=== PATIENT | female | born 1935 | race Caucasian/White ===

== ENCOUNTER 2018-08-16 15:03 | Inpatient (IN) | payer OTHER ==
--- OUTSIDE RECORDS SUMMARY | 2018-08-16 15:05 | XMS REPORT ---
:1935 [facility] Address [address] [place] [address] Care Team Providers Name Role Phone Unavailable Unavailable Unavailable Problems This patient has no known problems. Allergies, Adverse Reactions, Alerts This patient has no known allergies or adverse reactions. Medications This patient has no known medications.
[2018-08-16 17:37] LABS: Absolute Lymphocytes (CBC) 1.1 K/uL (0.7-4.9); Absolute Monocytes 0.8 K/uL (0.1-1.3); Absolute Neutrophil 9.9 K/uL (1.8-8.0); Basophils % 0.3 % (0-1.3); Eosinophils % 0.2 % (0-4.4); Hematocrit 40.3 % (36.0-45.0); MPV 7.7 fL (7.6-11.3); Monocytes % 6.9 % (3.3-12.3); RBC Red Blood Cell Count 4.45 M/uL (3.86-4.86)
[2018-08-16 17:47] LABS: ALT/SGPT 24 U/L (12-78); AST/SGOT 31 U/L (15-37); Albumin 3.6 g/dL (3.4-5.0); Alkaline Phosphatase 91 U/L (45-117); BUN Blood Urea Nitrogen 8 mg/dL (7-18); Bicarbonate 33 mmol/L (21-32); Bilirubin Direct 0.2 mg/dL (0-0.2); Bilirubin Total 0.6 mg/dL (0.2-1.0); Glucose Level 110 mg/dL (74-106); Lipase 159 U/L (73-393); Potassium 4.1 mmol/L (3.5-5.1); Protein, Total 6.7 g/dL (6.4-8.2)
[2018-08-16 17:52] LABS: Sodium Level 113 mmol/L (136-145)
--- NOTE | 2018-08-16 18:27 | RAD REPORT ---
EXAM DESCRIPTION: CT - Abdomen Pelvis Wo Contrast - 08/16/2018 6:10 pm CLINICAL HISTORY: Abdominal pain. Abd pain;Constipation COMPARISON: No comparisons TECHNIQUE: CT imaging of the abdomen and pelvis was performed without contrast. Solid organ and vasc ular assessment is limited due to lack of IV contrast. All CT scans are performed using dose optimization technique as appropriate and may include automated exposure control or mA/KV adjustment according to patient size. FINDINGS: The lower lung nelson are clear. The liver, spleen, pancreas, adrenal glands and left kidney are within normal limits for a limited no n-contrast examination.The right kidney is not visualized. No bowel obstruction, free air, free fluid or abscess. Moderate stool is retained in the colon. Promi nent aortoiliac atherosclerosis. Mild inflammatory changes are seen in the inferior rectum with a rec tocele suspected likely related to pelvic floor laxity. Irregular soft tissue mass is seen along the left aspect of the bladder measuring 3.7 x 2.6 cm[address]Modera [address] lumbar degenerative changes. IMPRESSION: Abnormal soft tissue mass along the left aspect of the bladder (3.7 x 2.6 cm) likely rep resenting a bladder malignancy. Recommend direct visualization with cystoscopy. Inferior pelvic floor laxity is suspected evidence of an rectocele. Suggest direct physical exam asse ssment. Aortoiliac atherosclerotic disease. Nonvisualized right kidney. A limited non-contrast examination was performed as detailed.
[2018-08-16] MEDS ORDERED: NA CHLORIDE 0.9% 1,000 ML ONE (18:29)
--- NOTE | 2018-08-16 19:21 | EDPHYS ---
Physician Documentation [facility] Name: Deandra Sorensen Age: 83 yrs Sex: Female : 1935 Arrival Date: 08/16/2018 Time: 15:04 Bed 19 Private MD: Stephon Sahu L ED Physician Shaan Singh HPI: 08/16 16:30 This 83 yrs old Female presents to ER via Wheelchair with complaints of pm1 abdominal pain and constipation. 16:30 The patient presents with abdominal pain that is diffuse. Onset: The symptoms/episode pm1 began/occurred 4 day(s) ago. The symptoms do not radiate. Associated signs and symptoms: Pertinent positives: constipation for 4 days, Pertinent negatives: chest pain, dysuria, fever, shortness of breath. The symptoms are described as achy. Modifying factors: The symptoms are alleviated by nothing, the symptoms are aggravated by constipation. The patient has experienced similar episodes in the past, multiple times, and the symptoms today are exactly the same, Constipation and hyponatremia admission in May 2018. Patient with constipation onset 7 days ago. Taking laxatives and had some diarrhea about four days ago but the constipation returned. 4 days of abdominal pain. No fevers, nausea or vomiting. Historical: - Allergies: 15:18 PENICILLINS; hb - PMHx: 15:18 COPD; hb - Immunization history:: Adult Immunizations up to date. - Social history:: Smoking status: Patient/guardian denies using tobacco. - Ebola Screening: : No symptoms or risks identified at this time. ROS: 16:30 Constitutional: Negative for fever, chills, and weight loss, Eyes: Negative for injury, pm1 pain, redness, and discharge, ENT: Negative for injury, pain, and discharge, Neck: Negative for injury, pain, and swelling, Cardiovascular: Negative for chest pain, palpitations, and edema, Respiratory: Negative for shortness of breath, cough, wheezing, and pleuritic chest pain. 16:30 Back: Negative for injury and pain, : Negative for injury, bleeding, discharge, and swelling, MS/Extremity: Negative for injury and deformity, Skin: Negative for injury, rash, and discoloration, Neuro: Negative for headache, weakness, numbness, tingling, and seizure. 16:30 Abdomen/GI: Positive for abdominal pain, constipation, Negative for nausea, vomiting, and diarrhea. Exam: 16:30 Constitutional: This is a well developed, well nourished patient who is awake, alert, pm1 and in no acute distress. Head/Face: Normocephalic, atraumatic. Eyes: Pupils equal round and reactive to light, extra-ocular motions intact. Lids and lashes normal. Conjunctiva and sclera are non-icteric and not injected. Cornea within normal limits. Periorbital areas with no swelling, redness, or edema. ENT: Nares patent. No nasal discharge, no septal abnormalities noted. Tympanic membranes are normal and external auditory canals are clear. Oropharynx with no redness, swelling, or masses, exudates, or evidence of obstruction, uvula midline. Mucous membranes moist. Neck: Trachea midline, no thyromegaly or masses palpated, and no cervical lymphadenopathy. Supple, full range of motion without nuchal rigidity, or vertebral point tenderness. No Meningismus. Chest/axilla: Normal chest wall appearance and motion. Nontender with no deformity. No lesions are appreciated. Cardiovascular: Regular rate and rhythm with a normal S1 and S2. No gallops, murmurs, or rubs. Normal PMI, no JVD. No pulse deficits. Respiratory: Lungs have equal breath sounds bilaterally, clear to auscultation and percussion. No rales, rhonchi or wheezes noted. No increased work of breathing, no retractions or nasal flaring. Abdomen/GI: Soft, non-tender, with normal bowel sounds. No distension or tympany. No guarding or rebound. No evidence of tenderness throughout. Back: No spinal tenderness. No costovertebral tenderness. Full range of motion. Skin: Warm, dry with normal turgor. Normal color with no rashes, no lesions, and no evidence of cellulitis. MS/ Extremity: Pulses equal, no cyanosis. Neurovascular intact. Full, normal range of motion. 16:30 Neuro: Orientation: is normal, Motor: is normal, moves all fours. 17:09 Abdomen/GI: Rectal prolapse self resolved. Maria Luisa newton, present at bedside for pm1 evaluation . Vital Signs: 15:16 BP 160 / 86; Pulse 104; Resp 20; Temp 97.8; Pulse Ox 91% on R/A; Pain 8/10; hb 16:30 BP 164 / 98; Pulse 97; Resp 18; Pulse Ox 100% on R/A; aj1 17:30 BP 175 / 84; Pulse 96; Resp 18; Pulse Ox 100% on R/A; aj1 18:26 BP 183 / 95; Pulse 99; Resp 18; Pulse Ox 100% on 2 lpm NC; aj1 19:00 BP 170 / 84; Pulse 89; Resp 20; Pulse Ox 100% on 2 lpm NC; jb4 20:00 BP 167 / 89; Pulse 94; Resp 20; Pulse Ox 99% on 2 lpm NC; jb4 21:00 BP 186 / 96; Pulse 95; Resp 20; Pulse Ox 98% on 2 lpm NC; jb4 21:46 BP 164 / 70; Pulse 96; Resp 20; Pulse Ox 97% on 2 lpm NC; jb4 MDM: 15:20 Patient medically screened. pm1 19:19 Data reviewed: vital signs. Data interpreted: Pulse oximetry: on room air is 100 %. pm1 Interpretation: normal. Counseling: I had a detailed discussion with the patient and/or guardian regarding: the historical points, exam findings, and any diagnostic results supporting the discharge/admit diagnosis, lab results, radiology results, the need for further work-up and treatment in the hospital. 19:54 Physician consultation: Wil Patiño MD was called at 19:54, was contacted at 19:54, pm1 regarding admission, patient's condition, and will see patient. 08/16 15:30 Order name: Basic Metabolic Panel; Complete Time: 17:58 pm1 08/16 15:30 Order name: CBC with Diff; Complete Time: 17:44 pm1 08/16 15:30 Order name: Creatinine for Radiology; Complete Time: 17:44 pm1 08/16 15:30 Order name: Hepatic Function; Complete Time: 17:58 pm1 08/16 15:30 Order name: Lipase; Complete Time: 17:58 pm1 08/16 20:59 Order name: Urine Microscopic Only; Complete Time: 22:36 pm1 08/16 21:10 Order name: Urine Dipstick--Ancillary (enter results); Complete Time: 21:21 fc 08/16 21:44 Order name: CBC with Automated Diff EDMS 08/16 21:44 Order name: CBC with Automated Diff EDMS 08/16 21:44 Order name: Comprehensive Metabolic Panel [facility] 08/16 21:44 Order name: Comprehensive Metabolic Panel [facility] 08/16 21:44 Order name: UR CREAT EDWI 08/16 21:44 Order name: UR CREAT EDWI 08/16 21:44 Order name: UR SODIUM EDWI 08/16 15:30 Order name: IV Saline Lock; Complete Time: 17:20 pm08/16 15:30 Order name: Labs collected and sent; Complete Time: 17:20 pm08/16 15:30 Order name: Urine Dipstick-Ancillary (obtain specimen); Complete Time: 21:12 pm08/16 18:05 Order name: Abdomen ; Complete Time: 18:33 EDWI 08/16 21:43 Order name: CONS Pharmacy Consult [facility] 08/16 21:44 Order name: Regular [facility] 08/16 21:44 Order name: UR SODIUM [facility] 08/16 21:44 Order name: Osmolality, Serum [facility] 08/16 21:44 Order name: Osmolality, Serum [facility] 08/16 21:44 Order name: Osmolality, Urine [facility] 08/16 21:44 Order name: Osmolality, Urine EDWI Administered Medications: 18:24 Drug: NS 0.9% 1000 ml Route: IV; Rate: 100 ml/hr; Site: left antecubital; aj1 22:23 Follow up: IV Status: Infusion continued upon admission jb4 Disposition: 18:51 Co-signature as Attending Physician, Shaan Singh MD. rn Disposition: 08/16/18 19:20 Hospitalization ordered by Wil Patiño for Inpatient Admission. Preliminary diagnosis is Hyponatremia. - Bed requested for Telemetry/MedSurg (Inpatient). - Status is Inpatient Admission. jb4 - Condition is Stable. - Problem is new. - Symptoms have improved. UTI on Admission? No Signatures: Dispatcher [employer] [facility] Ayla Naranjo RN RN aj1 Shaan Singh MD MD rn Garcia, Cindy, RN RN cg Marinas, Patrick, NP [employer] pm1 Cassie Zayas RN RN hb Bryson, James, RN RN jb4 Corrections: (The following items were deleted from the chart) 18:05 15:31 Abdomen Pelvis W Con+CT.RAD.BRZ ordered. [facility] 21:51 19:20 Hospitalization Ordered by Wil Patiño MD for Inpatient Admission. Preliminary cg diagnosis is Hyponatremia. Bed requested for Telemetry/MedSurg (Inpatient). Status is Inpatient Admission. Condition is Stable. Problem is new. Symptoms have improved. UTI on Admission? No. pm1 22:42 21:51 08/16/2018 19:20 Hospitalization Ordered by Wil Patiño MD for Inpatient jb4 Admission. Preliminary diagnosis is Hyponatremia. Bed requested for Telemetry/MedSurg (Inpatient). Status is Inpatient Admission. Condition is Stable. Problem is new. Symptoms have improved. UTI on Admission? No. cg
--- NOTE | 2018-08-16 19:21 | ER ---
Nurse's Notes [facility] Name: Deandra Sorensen Age: 83 yrs Sex: Female : 1935 Arrival Date: 08/16/2018 Time: 15:04 Bed 19 Private MD: Stephon Sahu L Diagnosis: Hyponatremia Presentation: 08/16 15:16 Presenting complaint: Constipation and lower abdominal pain x 4 days. Transition of hb care: patient was not received from another setting of care. Onset of symptoms was August 12, 2018. Risk Assessment: Do you want to hurt yourself or someone else? Patient reports no desire to harm self or others. Care prior to arrival: None. 15:16 Method Of Arrival: Wheelchair hb 15:16 Acuity: FATOU 3 hb Historical: - Allergies: 15:18 PENICILLINS; hb - PMHx: 15:18 COPD; hb - Immunization history:: Adult Immunizations up to date. - Social history:: Smoking status: Patient/guardian denies using tobacco. - Ebola Screening: : No symptoms or risks identified at this time. Screenin:30 Abuse screen: Denies threats or abuse. Denies injuries from another. Nutritional aj1 screening: No deficits noted. Tuberculosis screening: No symptoms or risk factors identified. Assessment: 16:30 General: Appears in no apparent distress. uncomfortable, Behavior is calm, cooperative, aj1 appropriate for age. Pain: Complains of pain in abdomen. Neuro: Level of Consciousness is awake, alert, obeys commands. Cardiovascular: Patient's skin is warm and dry. Respiratory: Airway is patent Respiratory effort is even, unlabored, Respiratory pattern is regular, symmetrical. GI: Abdomen is flat, non-distended, Bowel sounds present X 4 quads. Abd is soft and non tender X 4 quads. Reports constipation. : No signs and/or symptoms were reported regarding the genitourinary system. EENT: No signs and/or symptoms were reported regarding the EENT system. Derm: No signs and/or symptoms reported regarding the dermatologic system. Skin is pink, warm \T\ dry. normal. Musculoskeletal: No signs and/or symptoms reported regarding the musculoskeletal system. Circulation, motion, and sensation intact. 16:35 Reassessment: Patient assisted to the bathroom, tolerated fair. aj1 16:40 Reassessment: Patient assisted to bathroom via wheelchair, tolerated fair. aj1 16:50 Reassessment: Patient assisted to bedside commode, tolerated well. aj1 17:38 Reassessment: Patient appears in no apparent distress at this time. No changes from aj1 previously documented assessment. Patient and/or family updated on plan of care and expected duration. Pain level reassessed. Patient is alert, oriented x 3, equal unlabored respirations, skin warm/dry/pink. 18:26 Reassessment: Patient appears in no apparent distress at this time. No changes from aj1 previously documented assessment. Patient and/or family updated on plan of care and expected duration. Pain level reassessed. Patient is alert, oriented x 3, equal unlabored respirations, skin warm/dry/pink. 19:00 Reassessment: Patient appears in no apparent distress at this time. No changes from jb4 previously documented assessment. Patient and/or family updated on plan of care and expected duration. Pain level reassessed. Patient is alert, oriented x 3, equal unlabored respirations, skin warm/dry/pink. 20:00 Reassessment: Patient appears in no apparent distress at this time. No changes from jb4 previously documented assessment. Patient and/or family updated on plan of care and expected duration. Pain level reassessed. Patient is alert, oriented x 3, equal unlabored respirations, skin warm/dry/pink. 21:00 Reassessment: Patient appears in no apparent distress at this time. No changes from jb4 previously documented assessment. Patient and/or family updated on plan of care and expected duration. Pain level reassessed. Patient is alert, oriented x 3, equal unlabored respirations, skin warm/dry/pink. 21:58 Reassessment: Patient appears in no apparent distress at this time. No changes from jb4 previously documented assessment. Patient and/or family updated on plan of care and expected duration. Pain level reassessed. Patient is alert, oriented x 3, equal unlabored respirations, skin warm/dry/pink. 22:04 Reassessment: attempted to call report instructed to wait for call back. jb4 Vital Signs: 15:16 BP 160 / 86; Pulse 104; Resp 20; Temp 97.8; Pulse Ox 91% on R/A; Pain 8/10; hb 16:30 BP 164 / 98; Pulse 97; Resp 18; Pulse Ox 100% on R/A; aj1 17:30 BP 175 / 84; Pulse 96; Resp 18; Pulse Ox 100% on R/A; aj1 18:26 BP 183 / 95; Pulse 99; Resp 18; Pulse Ox 100% on 2 lpm NC; aj1 19:00 BP 170 / 84; Pulse 89; Resp 20; Pulse Ox 100% on 2 lpm NC; jb4 20:00 BP 167 / 89; Pulse 94; Resp 20; Pulse Ox 99% on 2 lpm NC; jb4 21:00 BP 186 / 96; Pulse 95; Resp 20; Pulse Ox 98% on 2 lpm NC; jb4 21:46 BP 164 / 70; Pulse 96; Resp 20; Pulse Ox 97% on 2 lpm NC; jb4 ED Course: 15:04 Patient arrived in ED. ag5 15:05 Stephon Sahu MD is Private Physician. ag5 15:16 Triage completed. hb 15:18 Arm band placed on. hb 15:20 Prem Clark NP is PHCP. pm1 15:20 Shaan Singh MD is Attending Physician. pm1 16:18 Ayla Naranjo RN is Primary Nurse. aj1 16:30 Patient has correct armband on for positive identification. Bed in low position. Call aj1 light in reach. Side rails up X 1. 16:30 No provider procedures requiring assistance completed. aj1 17:14 Initial lab(s) drawn, by me, sent to lab. Inserted saline lock: 22 gauge in left dh3 forearm, using aseptic technique. Blood collected. 17:15 Radiology exam delayed due to lab results not completed at this time. (BUN/Creatinine). vm2 17:31 Radiology exam delayed due to lab results not completed at this time. (BUN/Creatinine). vm2 17:[address] via wheelchair. vm2 18:08 CT completed. Patient tolerated procedure well. Patient moved back from CT. vm2 18:09 Abdomen In Process Unspecified. EDMS 19:19 Wil Patiño MD is Hospitalizing Provider. pm1 22:22 Patient admitted, IV remains in place. jb4 Administered Medications: 18:24 Drug: NS 0.9% 1000 ml Route: IV; Rate: 100 ml/hr; Site: left antecubital; aj1 22:23 Follow up: IV Status: Infusion continued upon admission jb4 Outcome: 19:20 Decision to Hospitalize by Provider. pm1 22:21 Admitted to Med/surg accompanied by tech, via stretcher, room 207, with oxygen, with jb4 chart, Report called to VIRI Garza 22:21 Condition: stable 22:21 Discharge instructions given to patient, family, Instructed on the need for admit, Demonstrated understanding of instructions. 22:42 Patient left the ED. jb4 Signatures: Dispatcher [employer] EDMS Ayla Naranjo RN RN aj1 Prem Clark, RIP TAILER RIP TAILER pm1 Cassie Zayas RN RN hb Bryson, James, RN RN jb4 Isadora Irving 2 Maria Luisa Casarez 3 Khloe Ballesteros 5 Corrections: (The following items were deleted from the chart) 17:38 17:37 Reassessment: Patient assisted to bathroom via wheelchair, tolerated fair aj1 aj1 22:03 19:00 Reassessment: Patient appears in no apparent distress at this time. Patient jb4 and/or family updated on plan of care and expected duration. Pain level reassessed. Patient is alert, oriented x 3, equal unlabored respirations, skin warm/dry/pink. jb4 22:03 20:00 Reassessment: Patient appears in no apparent distress at this time. Patient jb4 and/or family updated on plan of care and expected duration. Pain level reassessed. Patient is alert, oriented x 3, equal unlabored respirations, skin warm/dry/pink. jb4 22:03 21:00 Reassessment: Patient appears in no apparent distress at this time. Patient jb4 and/or family updated on plan of care and expected duration. Pain level reassessed. Patient is alert, oriented x 3, equal unlabored respirations, skin warm/dry/pink. jb4 22:03 21:58 Reassessment: Patient appears in no apparent distress at this time. Patient jb4 and/or family updated on plan of care and expected duration. Pain level reassessed. Patient is alert, oriented x 3, equal unlabored respirations, skin warm/dry/pink. jb4
[2018-08-16 21:20] LABS: Urine Blood 1+ (NEG); Urine Glucose NEGATIVE (NEG); Urine Protein 2+ (NEG); Urine Specific Gravity 1.015 (1.005-1.030); Urine pH 7.5 (5.0-7.0)
[2018-08-16] MEDS ORDERED: MORPHINE 2 MG/ML SYR IV PRN (21:40)
[2018-08-16 21:58] LABS: Urine Amorphous Sediment 1+ /HPF (NONE SEEN); Urine Bacteria <20 /HPF (<20); Urine Culture Reflex Order NOT NEEDED
[2018-08-16] MEDS: NA CHLORIDE 0.9% 1,000 ML IV SCH (22:00)
[2018-08-17] MEDS: ACETAMINOPHEN 500 MG TAB PO PRN ×2 (01:46→09:36)
[2018-08-17] MEDS: NA CHLORIDE 0.9% 1,000 ML IV SCH ×2 (05:11→07:00)
[2018-08-17 06:40] LABS: Absolute Lymphocytes (CBC) 1.3 K/uL (0.7-4.9); Absolute Monocytes 0.8 K/uL (0.1-1.3); Absolute Neutrophil 7.2 K/uL (1.8-8.0); Basophils % 0.2 % (0-1.3); Eosinophils % 0.8 % (0-4.4); Hematocrit 42.7 % (36.0-45.0); Lymphocytes % 13.8 % (15.3-44.8); MPV 7.5 fL (7.6-11.3); Monocytes % 8.6 % (3.3-12.3); RBC Red Blood Cell Count 4.69 M/uL (3.86-4.86)
[2018-08-17 06:43] LABS: ALT/SGPT 27 U/L (12-78); AST/SGOT 35 U/L (15-37); Albumin 3.6 g/dL (3.4-5.0); Alkaline Phosphatase 89 U/L (45-117); BUN Blood Urea Nitrogen 7 mg/dL (7-18); Bicarbonate 32 mmol/L (21-32); Bilirubin Total 0.5 mg/dL (0.2-1.0); Glucose Level 95 mg/dL (74-106); Potassium 3.6 mmol/L (3.5-5.1); Protein, Total 6.8 g/dL (6.4-8.2); Sodium Level 123 mmol/L (136-145)
[2018-08-17] MEDS ORDERED: NA CHLORIDE 0.9% 1,000 ML IV SCH (07:00)
[2018-08-17] MEDS: NIFEDIPINE XL 30 MG TABLET PO SCH (09:35)
[2018-08-17 11:37] LABS: BUN Blood Urea Nitrogen 10 mg/dL (7-18); Bicarbonate 32 mmol/L (21-32); Glucose Level 75 mg/dL (74-106); Potassium 3.3 mmol/L (3.5-5.1); Sodium Level 124 mmol/L (136-145)
[2018-08-17] MEDS: DOCUSATE NA 100 MG CAP PO SCH ×2 (12:44→21:12)
[2018-08-17] MEDS: LEVALBUTEROL 1.25 MG/3 ML NEB NEB PRN (16:15)
[2018-08-17] MEDS: IPRATROPIUM BROM 0.5MG/2.5ML NEB PRN (16:15)
[2018-08-17] MEDS ORDERED: LEVALBUTEROL 1.25 MG/3 ML NEB ONE (16:28)
[2018-08-17] MEDS ORDERED: IPRATROPIUM BROM 0.5MG/2.5ML ONE (16:28)
[2018-08-17 17:23] LABS: BUN Blood Urea Nitrogen 9 mg/dL (7-18); Bicarbonate 30 mmol/L (21-32); Glucose Level 109 mg/dL (74-106); Potassium 3.3 mmol/L (3.5-5.1); Sodium Level 125 mmol/L (136-145)
--- NOTE | 2018-08-17 17:48 | P.PN ---
Subjective Date of Service: 08/17/18 Patient seen and examined at bedside. No family at bedside. Chart reviewed and case discussed with nursing staff. States that she cannot go to the bathroom, bowel movement is painful. Has a rectocele, with streaks of bright red blood noted in the diaper. Review of Systems 10-point ROS is otherwise unremarkable Physical Examination - Vital Signs Temperature: 98.6 F Blood Pressure: 139/90 Pulse: 115 Respirations: 20 Pulse Ox (%): 95 - Physical Exam General: Alert, In no apparent distress, Mild distress, Moderate distress HEENT: Atraumatic, PERRLA, EOMI Neck: Supple, JVD not distended Respiratory: Clear to auscultation bilaterally, Normal air movement Cardiovascular: Regular rate/rhythm, Normal S1 S2 Gastrointestinal: Normal bowel sounds, No tenderness Musculoskeletal: No tenderness Integumentary: No rashes Neurological: Normal speech, Normal tone, Normal affect Lymphatics: No axilla or inguinal lymphadenopathy Rectal: Other (Rectocele noted) - Studies Laboratory Data (last 24 hrs) 08/16/18 17:14: Sodium 113 L*, Potassium 4.1, BUN 8, Creatinine 0.55, Glucose 110 H, Total Bilirubin 0.6, AST 31, ALT 24, Alkaline Phosphatase 91, Lipase 159 Assessment And Plan - Current Problems (Diagnosis) (1) Rectocele Current Visit: Yes Status: Acute (2) Constipation Current Visit: Yes Status: Acute (3) Hyponatremia Current Visit: Yes Status: Acute (4) Hypertension Current Visit: Yes Status: Acute - Plan This is a 83 yr old female with: Constipation (Acute) K59.003 Colace 100 b.i.d. Hyponatremia (Acute) E87.1 Continue IVF, continue to monitor sodium Rectocele (Acute) N81.6 She will need follow up with general surgery as an outpatient Hypertension Restart home medications DVT prophylaxis: Lovenox Diet: Heart healthy Disposition: pending symptomatic improvement and electrolyte improvement. Continue to monitor.
[2018-08-17] MEDS: TRAMADOL HCL 50 MG TAB PO PRN (18:52)
[2018-08-17] MEDS: clonazePAM 0.5 MG TAB PO SCH (21:12)
--- NOTE | 2018-08-17 21:47 | P.HP ---
Certification for Inpatient Patient admitted to: Inpatient With expected LOS: >2 Midnights Patient will require the following post-hospital care: None Practitioner: I am a practitioner with admitting privileges, knowledge of patient current condition, hospital course, and medical plan of care. Services: Services provided to patient in accordance with Admission requirements found in Title 42 Section 412.3 of the Code of Federal Regulations Patient History Date of Service: 08/16/18 Reason for admission: hyponatremia History of Present Illness: Patient is an 83yo who was admitted to the hospital with hyponatremia. Patient has a history of a rectocele and also appears to have a mass close to the bladder. Patient will need an evaluation by General surgery. This can probably be done as an outpatient. Patient's hyponatremia our needs to be corrected. She had a similar complaint plane a few months ago and this was felt to be related to Cymbalta. Patient be admitted to the hospital for further evaluation. Allergies Penicillins Allergy (Verified 08/16/18 22:54) unkown red dye Allergy (Verified 08/16/18 22:54) unknown Home Medications: Duloxetine HCl [Cymbalta] 30 mg PO DAILY 08/17/18 Lisinopril 20 mg PO DAILY 08/17/18 Nifedipine [Nifedipine ER] 30 mg PO DAILY 08/17/18 clonazePAM [Clonazepam] 1 tab PO BEDTIME 08/17/18 - Past Medical/Surgical History Has patient received pneumonia vaccine in the past: Yes Diabetic: No -: COPD -: NERVE Problems -: Depression -: Hysterectomy - Family History Father Medical History: Heart disease, Hypertension, Stroke Mother Medical History: Heart disease, Hypertension, Stroke - Social History Smoking Status: Current every day smoker Alcohol use: No CD- Drugs: No Caffeine use: Yes Place of Residence: Home Review of Systems 10-point ROS is otherwise unremarkable Physical Examination - Vital Signs Temperature: 97.4 F Blood Pressure: 133/79 Pulse: 96 Respirations: 20 Pulse Ox (%): 94 - Physical Exam General: Alert, Oriented x2, Cachectic, Disheveled HEENT: Atraumatic, Normocephalic Neck: Supple, 2+ carotid pulse no bruit, JVD not distended, No Thyromegaly Respiratory: Clear to auscultation bilaterally, Normal air movement Cardiovascular: Regular rate/rhythm, Normal S1 S2, No murmurs Gastrointestinal: Normal bowel sounds, Soft and benign, Non-distended Musculoskeletal: No clubbing, No swelling Integumentary: No rashes Neurological: Normal speech, Normal strength at 5/5 x4 extr, Normal tone, Sensation intact, Cranial nerves 3-12 intact Assessment & Plan - Problems (Diagnosis) (1) Hyponatremia Current Visit: Yes Status: Acute (2) Rectocele Current Visit: Yes Status: Acute - Plan Plan: 1. hydration with normal saline and correct his sodium gradually over 48 hr 2. monitor renal function closely 3. patient with rectocele and will need to be evaluated as an outpatient by General surgery 4. cystoscopy as an outpatient 5. GI and DVT prophylaxis - Advance Directives Does patient have a Living Will: Yes Does patient have a Durable POA for Healthcare: Yes - Code Status/Comfort Care Code Status Assessed: Yes Code Status: Full Code Critical Care: No Time Spent Managing PTS Care (In Minutes): 45
[2018-08-18 00:16] LABS: BUN Blood Urea Nitrogen 11 mg/dL (7-18); Bicarbonate 30 mmol/L (21-32); Glucose Level 96 mg/dL (74-106); Potassium 3.2 mmol/L (3.5-5.1); Sodium Level 128 mmol/L (136-145)
[2018-08-18] MEDS: NA CHLORIDE 0.9% 1,000 ML IV SCH ×3 (03:00→23:41)
[2018-08-18 06:16] LABS: BUN Blood Urea Nitrogen 9 mg/dL (7-18); Bicarbonate 34 mmol/L (21-32); Glucose Level 90 mg/dL (74-106); Potassium 3.3 mmol/L (3.5-5.1); Sodium Level 130 mmol/L (136-145)
[2018-08-18] MEDS: DOCUSATE NA 100 MG CAP PO SCH ×2 (08:23→20:00)
[2018-08-18] MEDS: NIFEDIPINE XL 30 MG TABLET PO SCH (08:24)
[2018-08-18] MEDS: ACETAMINOPHEN 500 MG TAB PO PRN (08:24)
[2018-08-18] MEDS ORDERED: LACTULOSE 20 GM/30 ML UCUP PO ONE (09:03)
[2018-08-18] MEDS ORDERED: POTASSIUM 25 MEQ EFFERV TAB PO ONE ×2 (09:06→21:00)
[2018-08-18 11:31] LABS: Potassium 5.1 mmol/L (3.5-5.1)
--- NOTE | 2018-08-18 13:16 | P.PN ---
Subjective Date of Service: 08/18/18 Chief Complaint: hyponatremia Patient seen and examined at bedside. No family at bedside. Chart reviewed and case discussed with nursing staff. States that she cannot go to the bathroom, bowel movement is painful. Has a rectocele, with streaks of bright red blood noted in the diaper. Complaining of abdominal pain, diffuse as she feels like she is going to have a bowel movement. 1 very small BM overnight. Review of Systems 10-point ROS is otherwise unremarkable Physical Examination - Vital Signs Temperature: 98.6 F Blood Pressure: 139/90 Pulse: 115 Respirations: 20 Pulse Ox (%): 95 - Physical Exam General: Alert, Mild distress HEENT: Atraumatic, PERRLA, EOMI Neck: Supple, JVD not distended Respiratory: Clear to auscultation bilaterally, Normal air movement Cardiovascular: Regular rate/rhythm, Normal S1 S2 Gastrointestinal: Normal bowel sounds, Tenderness (Diffuse) Musculoskeletal: No tenderness Integumentary: No rashes Neurological: Normal speech, Normal tone, Normal affect Lymphatics: No axilla or inguinal lymphadenopathy Assessment And Plan - Current Problems (Diagnosis) (1) Rectocele Current Visit: Yes Status: Acute (2) Constipation Current Visit: Yes Status: Acute (3) Hyponatremia Current Visit: Yes Status: Acute (4) Hypertension Current Visit: Yes Status: Acute - Plan This is a 83 yr old female with: Constipation (Acute) K59.003 Colace 100 b.i.d. Will consider adding lactulose if no bowel movement as patient is in mod distress Hyponatremia (Acute) E87.1 Continue IVF, continue to monitor sodium Appropriate Improvement in sodium Rectocele (Acute) N81.6 She will need follow up with general surgery as an outpatient Hypertension Restart home medications DVT prophylaxis: Lovenox Diet: Heart healthy Disposition: pending symptomatic improvement and electrolyte improvement. Continue to monitor. SW consult for dispo planning.
[2018-08-18] MEDS: IPRATROPIUM BROM 0.5MG/2.5ML NEB PRN ×2 (13:17→20:15)
[2018-08-18] MEDS: LEVALBUTEROL 1.25 MG/3 ML NEB NEB PRN ×2 (13:18→20:15)
[2018-08-18] MEDS: HYDROCODONE/APAP 5/325 MG TAB PO PRN ×2 (15:13→22:19)
[2018-08-18 17:27] LABS: Potassium 3.7 mmol/L (3.5-5.1)
[2018-08-18] MEDS: TRAMADOL HCL 50 MG TAB PO PRN (18:24)
[2018-08-18 18:53] LABS: Phosphorus 2.6 mg/dL (2.5-4.9)
[2018-08-18] MEDS: ENSURE ENLIVE 237 ML CAN PO SCH (20:00)
[2018-08-18] MEDS: clonazePAM 0.5 MG TAB PO SCH (20:01)
[2018-08-19 05:57] LABS: BUN Blood Urea Nitrogen 12 mg/dL (7-18); Bicarbonate 34 mmol/L (21-32); Glucose Level 87 mg/dL (74-106); Potassium 3.7 mmol/L (3.5-5.1); Sodium Level 137 mmol/L (136-145)
[2018-08-19] MEDS: ENSURE ENLIVE 237 ML CAN PO SCH ×2 (08:38→20:32)
[2018-08-19] MEDS: DOCUSATE NA 100 MG CAP PO SCH ×2 (08:38→20:31)
[2018-08-19] MEDS: NIFEDIPINE XL 30 MG TABLET PO SCH (08:38)
[2018-08-19] MEDS ORDERED: POTASSIUM 25 MEQ EFFERV TAB PO ONE (09:00)
[2018-08-19] MEDS ORDERED: BENZONATATE 100 MG CAP PO PRN (11:17)
[2018-08-19] MEDS: TRAMADOL HCL 50 MG TAB PO PRN ×2 (12:05→23:34)
[2018-08-19] MEDS: ALBUTEROL 2.5 MG/3 ML NEB SOL NEB SCH ×2 (13:03→20:09)
[2018-08-19] MEDS: IPRATROPIUM BROM 0.5MG/2.5ML NEB SCH ×2 (13:04→20:11)
--- NOTE | 2018-08-19 15:03 | RAD REPORT ---
EXAM DESCRIPTION: RAD - Chest Pa And Lat (2 Views) - 08/19/2018 2:56 pm CLINICAL HISTORY: COPD Chest pain. COMPARISON: Abdomen Pelvis Wo Contrast dated 08/16/2018 FINDINGS: Diffuse emphysema is present. The heart is mildly prominent in size. No displaced fracture s. IMPRESSION: Prominent COPD pattern.
--- NOTE | 2018-08-19 15:29 | P.PN ---
Subjective Date of Service: 08/19/18 Chief Complaint: hyponatremia Patient seen and examined at bedside. No family at bedside. Chart reviewed and case discussed with nursing staff. States that she cannot go to the bathroom, bowel movement is painful. Has a rectocele, with streaks of bright red blood noted in the diaper. Complaining of abdominal pain, diffuse as she feels like she is going to have a bowel movement. Also complaining of feeling short of breath, cough and congestion. Review of Systems 10-point ROS is otherwise unremarkable Physical Examination - Vital Signs Temperature: 97.7 F Blood Pressure: 140/95 Pulse: 103 Respirations: 20 Pulse Ox (%): 95 - Physical Exam General: Alert, Cachectic, Moderate distress, Other (Ill-appearing) HEENT: Atraumatic, PERRLA, EOMI Neck: Supple, JVD not distended Respiratory: Clear to auscultation bilaterally, Normal air movement Cardiovascular: Regular rate/rhythm, Normal S1 S2 Gastrointestinal: Normal bowel sounds, Tenderness (Diffuse) Musculoskeletal: No tenderness Integumentary: No rashes Neurological: Normal speech, Normal tone, Normal affect Lymphatics: No axilla or inguinal lymphadenopathy Rectal: Other (Rectocele) Assessment And Plan - Current Problems (Diagnosis) (1) Rectocele Current Visit: Yes Status: Acute (2) Constipation Current Visit: Yes Status: Acute (3) Hyponatremia Current Visit: Yes Status: Acute (4) Hypertension Current Visit: Yes Status: Acute (5) Dyspnea Current Visit: Yes Status: Acute (6) COPD exacerbation Current Visit: Yes Status: Acute (7) Bladder mass Current Visit: Yes Status: Acute (8) Current smoker Current Visit: Yes Status: Acute - Plan This is a 83 yr old female with: Constipation (Acute) K59.003 Colace 100 b.i.d. Will consider adding lactulose if no bowel movement as patient is in mod distress Likely secondary to the rectocele Dyspnea COPD exacerbation Current smoker Continue breathing treatments, scheduled Oxygen as needed Chest x-ray with COPD changes, no acute pneumonia/consolidation noted Counseled on smoking cessation Hyponatremia (Acute) E87.1 Resolved Bladder mass, soft tissue, located on left aspect of bladder Incidentally found on CT abdomen Soft tissue mass, Suspicious for bladder malignancy Patient will need outpatient urology/cystoscopy for further evaluation of the mass Rectocele (Acute) N81.6 She will need follow up with general surgery as an outpatient Hypertension Restart home medications. Will continue to adjust as needed DVT prophylaxis: Lovenox Diet: Heart healthy Disposition: pending symptomatic improvement. Continue to monitor. SW consult for dispo planning.
[2018-08-19] MEDS: ONDANSETRON 4 MG/2 ML VIAL IV PRN (16:32)
[2018-08-19] MEDS: NA CHLORIDE 0.9% 1,000 ML IV SCH (19:00)
--- NOTE | 2018-08-19 19:22 | RAD REPORT ---
EXAM DESCRIPTION: RAD - Shoulder Left 2 View - 08/19/2018 7:15 pm CLINICAL HISTORY: fall Fall, trauma, left shoulder pain COMPARISON: No comparisons FINDINGS: No acute fracture or dislocation is seen.
--- NOTE | 2018-08-19 19:23 | RAD REPORT ---
EXAM DESCRIPTION: RAD - Wrist Left 3 View - 08/19/2018 7:17 pm CLINICAL HISTORY: fall Pain COMPARISON: No comparisons FINDINGS: Soft tissue swelling is seen along the dorsum of the distal forearm. Radiocarpal arthriti c changes are present. No acute fracture or dislocation identified
--- NOTE | 2018-08-19 20:13 | RAD REPORT ---
EXAM DESCRIPTION: US - Extremity Venous Uni Ltd - 08/19/2018 8:03 pm CLINICAL HISTORY: fall Leg swelling and edema. COMPARISON: No comparisons FINDINGS: Left upper extremity venous system was interrogated with Doppler technique. Normal flow, c ompressibility and augmentation was noted. There is no DVT present. IMPRESSION: No evidence of left upper extremity deep venous thrombosis.
[2018-08-19] MEDS: clonazePAM 0.5 MG TAB PO SCH (20:31)
[2018-08-20] MEDS: ALBUTEROL 2.5 MG/3 ML NEB SOL NEB SCH ×3 (01:35→14:00)
[2018-08-20] MEDS: IPRATROPIUM BROM 0.5MG/2.5ML NEB SCH ×3 (01:35→14:00)
[2018-08-20] MEDS: NA CHLORIDE 0.9% 1,000 ML IV SCH ×3 (03:35→20:13)
[2018-08-20 05:59] LABS: BUN Blood Urea Nitrogen 12 mg/dL (7-18); Bicarbonate 35 mmol/L (21-32); Glucose Level 86 mg/dL (74-106); Potassium 3.7 mmol/L (3.5-5.1); Sodium Level 136 mmol/L (136-145)
[2018-08-20] MEDS: DULOXETINE 30 MG CAP PO SCH (08:34)
[2018-08-20] MEDS: DOCUSATE NA 100 MG CAP PO SCH ×2 (08:34→20:13)
[2018-08-20] MEDS: NIFEDIPINE XL 30 MG TABLET PO SCH (08:34)
[2018-08-20] MEDS: ENSURE ENLIVE 237 ML CAN PO SCH ×2 (08:35→20:17)
[2018-08-20] MEDS ORDERED: POTASSIUM 25 MEQ EFFERV TAB PO ONE (09:00)
--- NOTE | 2018-08-20 11:10 | P.PN ---
Subjective Date of Service: 08/20/18 Chief Complaint: hyponatremia Patient seen and examined at bedside. No family at bedside. Chart reviewed and case discussed with nursing staff. States that she cannot go to the bathroom, bowel movement is painful. Has a rectocele, with streaks of bright red blood noted in the diaper. Complaining of abdominal pain, diffuse as she feels like she is going to have a bowel movement. States this feels a little better. That has actually defecate , cannot defecate/feeling of incomplete defecation. Shortness of breath, cough and congestion has improved. Overnight, patient had a questionable fall. Per patient, she was leaning over to throw something in trash can and kind of fell forward. She hit her wrist, but states she did not hit her head. This morning not complaining of any pain Review of Systems 10-point ROS is otherwise unremarkable Physical Examination - Vital Signs Temperature: 98.6 F Blood Pressure: 157/73 Pulse: 101 Respirations: 18 Pulse Ox (%): 89 - Physical Exam General: Alert, Cachectic, Mild distress, Other (Elderly) HEENT: Atraumatic, PERRLA, EOMI Neck: Supple, JVD not distended Respiratory: Clear to auscultation bilaterally, Normal air movement Cardiovascular: Regular rate/rhythm, Normal S1 S2 Gastrointestinal: Normal bowel sounds, Tenderness (Mild/diffuse) Musculoskeletal: No tenderness Integumentary: No rashes Neurological: Normal speech, Normal tone, Normal affect External genitalia: Other (Rectocele noted) Assessment And Plan - Current Problems (Diagnosis) (1) Rectocele Current Visit: Yes Status: Acute (2) Constipation Current Visit: Yes Status: Acute (3) Hyponatremia Current Visit: Yes Status: Acute (4) Hypertension Current Visit: Yes Status: Acute (5) Dyspnea Current Visit: Yes Status: Acute (6) COPD exacerbation Current Visit: Yes Status: Acute (7) Bladder mass Current Visit: Yes Status: Acute (8) Current smoker Current Visit: Yes Status: Acute (9) Fall during current hospitalization Current Visit: Yes Status: Acute Qualifiers: Encounter type: initial encounter Qualified Code(s): W19.XXXA - Unspecified fall, initial encounter; Y92.239 - Unspecified place in hospital as the place of occurrence of the external cause - Plan This is a 83 yr old female with: Constipation (Acute) K59.003 Continue Colace 100 b.i.d. Likely secondary to the rectocele Increase hydration, fiber. Dyspnea COPD exacerbation Current smoker Continue breathing treatments, scheduled Oxygen as needed Chest x-ray with COPD changes, no acute pneumonia/consolidation noted Counseled on smoking cessation Hyponatremia (Acute) E87.1 Resolved Bladder mass, soft tissue, located on left aspect of bladder Incidentally found on CT abdomen Soft tissue mass, Suspicious for bladder malignancy Patient will need outpatient urology/cystoscopy for further evaluation of the mass Rectocele (Acute) N81.6 She will need follow up with general surgery as an outpatient Patient is in a lot of pain and if it continues We will have general surgery evaluate patient here. Hypertension Stable on home medications. Will continue to adjust as needed Status post fall in the hospital Did not hit her head, but patient was complaining of neck pain. CT scan of the head ordered, patient refused stating that she feels okay. X-ray of the wrist and shoulder without any acute abnormalities. Hematoma evaluated on the wrist, improved from yesterday. Ultrasound negative for any DVT at this time. Denies any complaints of pain this morning. Will continue to monitor mentation/ neurological status. DVT prophylaxis: Lovenox Diet: Heart healthy Disposition: pending symptomatic improvement. Continue to monitor. SW consult for dispo planning as patient lives by herself, and I do not think she will be a safe discharge home..
[2018-08-20] MEDS: TRAMADOL HCL 50 MG TAB PO PRN (12:18)
[2018-08-20] MEDS ORDERED: IPRATROPIUM BROM 0.5MG/2.5ML NEB PRN (14:59)
[2018-08-20] MEDS: clonazePAM 0.5 MG TAB PO SCH (20:13)
[2018-08-21] MEDS: TRAMADOL HCL 50 MG TAB PO PRN ×4 (00:09→21:05)
[2018-08-21] MEDS: ACETAMINOPHEN 500 MG TAB PO PRN ×4 (02:15→23:44)
[2018-08-21 06:22] LABS: Absolute Lymphocytes (CBC) 1.2 K/uL (0.7-4.9); Absolute Monocytes 0.8 K/uL (0.1-1.3); Absolute Neutrophil 5.4 K/uL (1.8-8.0); Basophils % 0.3 % (0-1.3); Eosinophils % 2.5 % (0-4.4); Hematocrit 39.9 % (36.0-45.0); Lymphocytes % 16.1 % (15.3-44.8); MPV 7.4 fL (7.6-11.3); Monocytes % 10.5 % (3.3-12.3); RBC Red Blood Cell Count 4.17 M/uL (3.86-4.86)
[2018-08-21 06:39] LABS: BUN Blood Urea Nitrogen 12 mg/dL (7-18); Bicarbonate 35 mmol/L (21-32); Glucose Level 80 mg/dL (74-106); Sodium Level 136 mmol/L (136-145)
[2018-08-21] MEDS: DULOXETINE 30 MG CAP PO SCH (08:23)
[2018-08-21] MEDS: DOCUSATE NA 100 MG CAP PO SCH ×2 (08:23→19:52)
[2018-08-21] MEDS: NIFEDIPINE XL 30 MG TABLET PO SCH (08:23)
[2018-08-21] MEDS: ENSURE ENLIVE 237 ML CAN PO SCH ×2 (08:23→19:53)
[2018-08-21] MEDS ORDERED: IPRATROPIUM BROM 0.5MG/2.5ML NEB PRN (14:00)
--- NOTE | 2018-08-21 15:18 | P.PN ---
Subjective Date of Service: 08/21/18 Chief Complaint: hyponatremia Subjective: No new changes Patient seen and examined at bedside. No family at bedside. Chart reviewed and case discussed with nursing staff. Still complaining of unable to go to the bathroom, bowel movement is painful. Has a rectocele, with streaks of bright red blood noted in the diaper. Review of Systems 10-point ROS is otherwise unremarkable Physical Examination - Vital Signs Temperature: 97.9 F Blood Pressure: 179/87 Pulse: 93 Respirations: 20 Pulse Ox (%): 94 - Physical Exam General: Alert, Oriented x3, Mild distress, Other (Elderly, ill-appearing; ) HEENT: Atraumatic, PERRLA, EOMI Neck: Supple, JVD not distended Respiratory: Clear to auscultation bilaterally, Normal air movement Cardiovascular: Regular rate/rhythm, Normal S1 S2 Gastrointestinal: Normal bowel sounds, No tenderness Musculoskeletal: No tenderness Integumentary: No rashes Neurological: Normal speech, Normal tone, Normal affect Rectal: Other (Rectocele noted, soft) Assessment And Plan - Current Problems (Diagnosis) (1) Rectocele Current Visit: Yes Status: Acute (2) Constipation Current Visit: Yes Status: Acute (3) Hyponatremia Current Visit: Yes Status: Acute (4) Hypertension Current Visit: Yes Status: Acute (5) Dyspnea Current Visit: Yes Status: Acute (6) COPD exacerbation Current Visit: Yes Status: Acute (7) Bladder mass Current Visit: Yes Status: Acute (8) Current smoker Current Visit: Yes Status: Acute (9) Fall during current hospitalization Current Visit: Yes Status: Acute Qualifiers: Encounter type: initial encounter Qualified Code(s): W19.XXXA - Unspecified fall, initial encounter; Y92.239 - Unspecified place in hospital as the place of occurrence of the external cause - Plan This is a 83 yr old female with: Constipation (Acute) K59.003 Continue Colace 100 b.i.d. Likely secondary to the rectocele Increase hydration, fiber. . Dyspnea COPD exacerbation Current smoker Continue breathing treatments, scheduled Oxygen as needed Chest x-ray with COPD changes, no acute pneumonia/consolidation noted Counseled on smoking cessation Hyponatremia (Acute) E87.1 Resolved Bladder mass, soft tissue, located on left aspect of bladder Incidentally found on CT abdomen Soft tissue mass, Suspicious for bladder malignancy Patient will need outpatient urology/cystoscopy for further evaluation of the mass Discussed with family regarding further care; daughter states that she has nausea or how much further invasive treatment they would like at this point. Encouraged daughter to talk to patient regarding further treatment. Introduced family to hospice care. Daughter states that she will discuss with patient and make a decision. Rectocele (Acute) N81.6 Patient continues to have pain Surgery consulted, recommendations appreciated. Hypertension Stable on home medications. Will continue to adjust as needed Status post fall in the hospital Did not hit her head, but patient was complaining of neck pain. CT scan of the head ordered, patient refused stating that she feels okay. X-ray of the wrist and shoulder without any acute abnormalities. Hematoma evaluated on the wrist, improved, almost resolved. Ultrasound negative for any DVT at this time. Denies any complaints of pain this morning. Will continue to monitor mentation/ neurological status. DVT prophylaxis: Lovenox Diet: Heart healthy Disposition:Continue to monitor. Social work involved for discharge planning. Family would like patient to go to a rehab facility for short term and possible transfer to a long-term facility. pending placement.
[2018-08-21] MEDS: NA CHLORIDE 0.9% 1,000 ML IV SCH (16:25)
--- NOTE | 2018-08-21 18:26 | CON ---
Date of Consultation: 08/21/2018 Reason: Rectal prolapse. History Of Present Illness: The patient is an 83-year-old female with multiple medical problems, who is admitted with hyponatremia and has complained of rectal pain off and on through her hospitalizati on and noted to have a rectal prolapse. She has had this problem for the last year. She did have a bowel movement last night and has not had a recent colonoscopy. No abdominal pain, nausea, or vomiti ng. Review of Systems: Otherwise unremarkable. Past Medical History: Significant for COPD, depression. Past Surgical History: Significant for hysterectomy. Allergies: INCLUDE PENICILLIN. Social History: She does smoke, does not drink. Family History: Significant for heart disease, hypertension, and stroke. Physical Examination: Vital signs: Stable. Blood pressure is slightly high. She is afebrile. General: She is awake, alert. Head and Neck: No masses. Chest: Clear. Heart: S1, S2. Abdomen: Soft, nondistended, nontender. Positive bowel sounds. Extremities: Neurovascularly intact. Neuro: Nonfocal. Rectal exam: Reveals a concentric hamilton of mucosa consistent with rectal prolapse. It is easily re ducible. There is no ecchymosis noted. There is no sign of ischemia. Laboratory Data: White count is 7.7, H and H are normal, there is no left shift. Chemistry reviewed . Her sodium has normalized. Assessment: An 83-year-old female with multiple medical problems, poor surgical candidate with recta l prolapse. After speaking to the daughter, the patient's family really does not want any aggressive intervention at this time. We will manage it symptomatically. There is no need for any acute surgi layne intervention. If they decide they want something done, I would recommend the patient go as an ou tpatient to a colorectal surgeon in [place]. Reconsult geoff HOLLINGSWORTH/YANELI Voice ID: [id number] Report ID: [id number]
[2018-08-21] MEDS: clonazePAM 0.5 MG TAB PO SCH (19:53)
[2018-08-22] MEDS: TRAMADOL HCL 50 MG TAB PO PRN ×3 (02:36→17:54)
[2018-08-22] MEDS: NA CHLORIDE 0.9% 1,000 ML IV SCH ×2 (07:00→10:46)
[2018-08-22] MEDS: DULOXETINE 30 MG CAP PO SCH (08:57)
[2018-08-22] MEDS: ENSURE ENLIVE 237 ML CAN PO SCH ×2 (08:57→20:16)
[2018-08-22] MEDS: NIFEDIPINE XL 30 MG TABLET PO SCH (08:57)
[2018-08-22] MEDS: DOCUSATE NA 100 MG CAP PO SCH ×2 (08:57→20:15)
[2018-08-22] MEDS: ACETAMINOPHEN 500 MG TAB PO PRN ×2 (10:46→20:19)
[2018-08-22] MEDS: ONDANSETRON 4 MG/2 ML VIAL IV PRN (18:11)
[2018-08-22] MEDS: clonazePAM 0.5 MG TAB PO SCH (20:15)
--- NOTE | 2018-08-22 22:27 | PN ---
Date of Progress Note: 08/22/2018 Subjective: The patient is seen and examined. Chart reviewed and case discussed with RN. The patient denies any complaints. No significant events overnight. Medications: List reviewed. Code Status: Full. Physical Examination: Vital Signs: Temperature 98.9, heart rate 80, blood pressure 186/82, respirations 18, O2 is 94% on 2 L via nasal cannula. BMI 16.5. General: Awake, alert, oriented x3. Elderly female, frail, ill appearing, cachectic. CV: S1, S2. Peripheral pulses present. Regular rate and rhythm. Respiratory: Moving air well bilaterally. No wheezing or stridor. Gastrointestinal: Abdomen is soft, nontender, nondistended. Positive bowel sounds. Extremities: No clubbing, cyanosis, or edema. Neurologic: Nonfocal. Laboratory Data: Sodium 136, potassium 4, chloride 97, CO2 of 35, BUN 12, creatinine 0.46, glucose 80, calcium 8.2. Labs are from 08/21/2018. Cdiff is negative. Assessment And Plan: An 83-year-old female with: 1. Acute hyponatremia, improving. We will continue to monitor. 2. Essential hypertension. 3. Chronic obstructive pulmonary disease exacerbation. 4. Dyspnea. 5. Constipation. 6. Rectocele. No surgical intervention recommended by Surgery. 7. Fall during hospitalization. The patient's x-ray of the wrist and shoulders negative. CT scan of the head was ordered; however, the patient refused. No change in her mental status. Does have a minimal hematoma on the wrist. Ultrasound negative for DVT. 8. Bladder mass. Soft tissue located in the left aspect of the bladder. Incidental finding on CT abdomen, suspicious for malignancy. Previous hospitalist, Dr. Brunoiscussed with family. Daughter is not keen on further invasive treatment at this time given the patient's comorbidities and age and overall functional status. The patient's family is still awaiting decision for hospice. We will discuss further with Social Work. We will continue with stool softeners. Monitor for signs of rectal bleeding due to the rectocele. Appreciate Dr. Gonzalez's input. At this time, no surgical intervention planned. We will continue breathing treatments for her COPD and supplemental oxygen. 9. PT eval likely. Will need SNF versus hospice. We will discuss further with family regarding plan of care. Code Status: Full. SA/MODL Voice ID: [id number] Report ID: [id number] MTDD
[2018-08-23] MEDS: NA CHLORIDE 0.9% 1,000 ML IV SCH (04:44)
[2018-08-23] MEDS: NIFEDIPINE XL 30 MG TABLET PO SCH (09:05)
[2018-08-23] MEDS: DULOXETINE 30 MG CAP PO SCH (09:05)
[2018-08-23] MEDS: DOCUSATE NA 100 MG CAP PO SCH (09:05)
[2018-08-23] MEDS: ENSURE ENLIVE 237 ML CAN PO SCH (09:06)
[2018-08-23] MEDS: TRAMADOL HCL 50 MG TAB PO PRN (10:42)
[2018-08-23] MEDS ORDERED: LIDOCAINE 5% OINT 30 GM TUBE TOP SCH (10:57)
--- NOTE | 2018-08-24 01:39 | DS ---
Date of Discharge: 08/23/2018 Consultants: 1.Leanna Barnhart M.D., with Urology. 2.Raymundo Gonzalez M.D., with General Surgery. Admitting Diagnoses: 1.Hyponatremia. 2.Rectocele. 3.Chronic obstructive pulmonary disease. 4.Dementia. 5.Depression. Discharge Diagnoses: 1.Acute hyponatremia, corrected. 2.Essential hypertension, stable. 3.Chronic obstructive pulmonary disease with exacerbation, resolved. 4.Dyspnea. 5.Constipation. 6.Rectocele. No surgical intervention recommended by Surgery. 7.Fall during hospitalization. 8.Bladder mass. Family does not wish to pursue any invasive measurements, evaluated by Urology. Hospital Course: The patient is an 83-year-old female, comes in with hyponatremia as well as rectoce le and bladder mass found incidentally. The patient was started on IV fluids. Her sodium levels imp roved, and she was back to her baseline. Regarding her bladder mass, it was about 3.7 x 2.6 cm, like ly malignant. However, family including daughter initially did not want any intervention. Urology w as also consulted with Dr. Barnhart and did not recommend any surgery as the patient and family were not interested. I spoke to the son as well on day of discharge. She understands the treatment plan. U nderstands this is malignancy and has propensity to spread and become metastatic, which may lead to f urther morbidity and mortality. They understand given her condition at this point, do not wish to pu rsue further aggressive care. The patient was seen by Dr. Gonzalez with General Surgery due to rectocel e. The patient was having some blood with her stools. Her hemoglobin remained stable. She was eval uated, and there were no recommendations for emergent surgical intervention at this time. The patien t's COPD did improve with treatment. She was on breathing treatments. Her Doppler sonogram was nega tive for DVT. She did have a fall while in the hospital. She refused a head CT scan, stating that s he was fine. However, wrist and shoulder x-rays were done, which did not show any fractures. Did sh ow some arthritis. She had minimal hematoma in the wrist, which resolved. The patient was then maddi red for discharge. She was referred to [facility] for [facility]. The patient w as then accepted to a facility near [place], called [facility], and was discharged to [facility] nursing facility in a stable condition. Activity: Fall precautions. Diet: Heart healthy. Followup: Follow up with primary care physician in 2 to 3 days. Follow up with surgeon, Dr. Gonzalez, in 2 weeks. Follow up with urologist, Dr. Barnhart, as needed. Return to ER for worsening condition. Repeat imaging studies for monitoring bladder mass. Medications: As per medication reconciliation list. Physical Examination: General: Awake, alert, and oriented x3. Elderly female, frail, cachectic. BMI 16. CV: S1, S2. Peripheral pulses present. Respiratory: Moving air well bilaterally. Abdomen: Soft, nontender, nondistended. Positive bowel sounds. Extremities: No clubbing, cyanosis, or edema. Neurologic: Nonfocal. Total time spent discharging the patient was 37 minutes. /YANELI Voice ID: [id number] Report ID: [id number]
== END 2018-08-23 17:25 | DRG 641 ==
LOC: ER 15:03 → ERHOLD 21:40 → 2ND 22:20
PROVIDERS: ADMIT Hospitalist; ATTEND Family Medicine
DX: E87.1 Hypo-osmolality and hyponatremia (principal); J44.1 Chronic obstructive pulmonary disease with (acute) exacerbation; K59.00 Constipation, unspecified; N81.6 Rectocele; N32.9 Bladder disorder, unspecified; Z88.0 Allergy status to penicillin; I10 Essential (primary) hypertension; S60.219A Contusion of unspecified wrist, initial encounter; W18.39XA Other fall on same level, initial encounter; Y93.89 Activity, other specified; Y92.239 Unspecified place in hospital as the place of occurrence of the external cause; F17.210 Nicotine dependence, cigarettes, uncomplicated
CPT/HCPCS: 36415; 71046; 74176; 80048; 80053; 80076; 81003; 81015; 82570; 83690; 83735; 83930; 83935; 84100; 84300; 85025; 87493; 93971; 94640; 96360; 96361; 97110; 97116; 97162; 97530; 99285; J2405; J7030